=== PATIENT | male | born 1990 | race Two or more races ===

== ENCOUNTER → 2016-10-13 | Outpatient (CLI) | payer BC | END | disposition home or self-care (01) | LOC: RAD 10:30 | PROVIDERS: ATTEND Internal Medicine | DX: S62.91XA Unspecified fracture of right hand, initial encounter for closed fracture (principal); M25.561 Pain in right knee; M25.562 Pain in left knee; M79.672 Pain in left foot; X58.XXXA Exposure to other specified factors, initial encounter; Y93.89 Activity, other specified; Y92.89 Other specified places as the place of occurrence of the external cause; Y99.8 Other external cause status ==